=== PATIENT | female | born 1970 | race African-American/Black ===

== ENCOUNTER → 2017-09-30 | Day surgery (SDC) | payer OTHER ==
--- NOTE | 2017-10-03 12:01 | PATH ---
Surgical Pathology Report Patient Name: ROMAN MARTINEZ [facility]. Rec. #: [id number] /Age/Gender: 1970 (Age: 46) / F Account: [id number] Location: [facility] RADIOLOGY U Taken: 09/30/2017 Received: 09/30/2017 Reported: 10/03/2017 Physicians: Agatha Collins M.D. Specimen(s) Received LEFT BREAST 11:30, 9CM FN Clinical History Left breast mass, abnormal imaging Final Diagnosis BREAST, LEFT,11:30, 9 CM FN, CORE BIOPSY: FIBROADENOMA. Electronically Signed Imelda Smith M.D. Gross Description Received in formalin, labeled "left breast 11:30 9 cm fn" are five cores of light de luna and yellow soft tissue admixed with blood clot ranging from 0.3-1 cm in length with a diameter up to 0.2 cm. Entirely submitted in one cassette. Time to formalin fixation: 2 minutes Total formalin fixation: Approximately 6 hours ebram/09/30/2017
== END | disposition home or self-care (01) ==
LOC: FRADUS-SUR 11:12
PROVIDERS: ATTEND Surgery
PROC: 0HBU3ZX Excision of Left Breast, Percutaneous Approach, Diagnostic (ICD-10-PCS; principal; 2017-09-30)
DX: N63.22 Unspecified lump in the left breast, upper inner quadrant (principal); D24.2 Benign neoplasm of left breast
CPT/HCPCS: 19083; 87899; 88305-TC; A4648; G0206-TC

== ENCOUNTER 2017-10-25 06:49 | Day surgery (SDC) | payer OTHER ==
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
[2017-10-19 14:00] VITALS: BMI 18.5
[2017-10-25] MEDS ORDERED: LIDOCAINE HCL 1%, 10 MG/ML (20ML VIAL) ONE (07:32)
[2017-10-25] MEDS ORDERED: KETOROLAC TROMETHAMINE 30 MG/1 ML VIAL IVPUSH PRN (09:41)
[2017-10-25] MEDS ORDERED: ONDANSETRON 4 MG/2 ML VIAL IVPUSH PRN (09:41)
[2017-10-25] MEDS ORDERED: DEXTROSE 5%-0.45% SALINE 1,000 ML IV SCH (09:45)
[2017-10-25] MEDS ORDERED: BUPIVACAINE HCL/PF 2.5 MG/ML - 30 ML VIAL IJ ONE (10:37)
[2017-10-25] MEDS ORDERED: BUPIVACAINE HCL/PF 0.25% (2.5MG/ML) 10 ML VIAL IJ ONE ×2 (10:40)
[2017-10-25] MEDS ORDERED: PROMETHAZINE HCL 25 MG/1 ML VIAL IVPUSH PRN (11:12)
[2017-10-25] MEDS ORDERED: oxyCODONE HCL 5 MG TABLET PO PRN (11:12)
[2017-10-25] MEDS ORDERED: SODIUM CHLORIDE 1,000 ML IV SCH (11:15)
[2017-10-25 12:01] VITALS: PULSE 84; TEMP 97.3
[2017-10-25 12:33] VITALS: BP 124/78
--- NOTE | 2017-10-26 10:23 | OP ---
DATE OF OPERATION: 10/25/2017 PREOPERATIVE DIAGNOSES: Right atypia and palpable left breast mass. POSTOPERATIVE DIAGNOSES: Right atypia and palpable left breast mass. PROCEDURE: 1. Right partial mastectomy. 2. Left breast mass excision. SURGEON: Courtney Collins MD KNIFE BLADE POLISHER: LENORE Jones ANESTHESIA: General. ANESTHESIOLOGIST: SPECIMEN: 1. Right partial mastectomy. 2. Left breast mass. ESTIMATED BLOOD LOSS: Minimal. DRAINS: None. INDICATION FOR PROCEDURE: The patient is a 47-year-old woman who had an abnormal mammogram. The mammogram showed suspicious findings in the right breast lower inner quadrant. Stereotactic biopsy showed atypia. Excision was recommended. Prior to her initial visit, the patient noticed a left breast mass. Ultrasound showed a mass consistent with a fibroadenoma in the left upper outer quadrant. She opted for excision of the mass at the same time as the right-sided procedure. The procedure, risks, and complications were discussed with her prior to surgery. DESCRIPTION OF PROCEDURE: The patient was taken to Breast Imaging where she underwent localization of the clip in the right breast lower inner quadrant. She was taken to the ambulatory area. Informed consent was obtained. Examination of the breasts showed a localizing wire in the right lower inner quadrant and a palpable mass in the left upper outer quadrant. She was taken to the operating room and placed on the operating room table in the supine position. Sequential compression devices were placed on both legs. She received antibiotics prior to surgery. The breasts were prepped and draped in the usual fashion. The right-sided procedure was performed first after the patient was intubated and after she received antibiotics. A radial incision was made from the tip of the needle towards the nipple. The incision was deepened using electrocautery. Electrocautery was used to mobilize the tissue around the guidewire, down towards the tip of the needle. The specimen was then removed and labeled with a long lateral suture and a short superior suture. A specimen radiograph showed the clip was included. The specimen was placed in formalin and sent to Radiology. The wound was irrigated and inspected for hemostasis. The skin was infiltrated with 0.25% Marcaine. The deep tissue was closed with interrupted sutures of 2-0 plain. The dermis was closed with interrupted sutures of 3-0 Vicryl. The skin was closed with a running subcuticular closure of 4-0 Biosyn. The wound was cleaned and covered with Steri-Strips. Attention was then turned to the left breast mass. The mass could be felt in the left upper inner quadrant. An incision was made directly overlying the mass. The incision was deepened using electrocautery until the mass was exposed. The mass was then from the surrounding breast tissue using blunt dissection. The mass was grasped with a clamp, and electrocautery was used to remove it from the operative field. It was labeled with a long lateral stitch and a short superior stitch. In the appearance, it was consistent with a fibroadenoma. It was placed in formalin and sent to Pathology. The wound was inspected, and there was a bleeding area in the chest wall, that was controlled with electrocautery. The incision was closed using interrupted sutures of 3-0 Vicryl for the dermis. The skin was infiltrated with 0.25% Marcaine. The skin was then closed with a running subcuticular closure of 4-0 Biosyn. The wound was cleaned and covered with Steri-Strips. A sterile gauze dressing was applied to both incisions, and a surgical bra was applied. The patient tolerated the procedure well. At the end of the procedure, all sponge, lap, and instrument counts were correct. She was taken to the recovery area in satisfactory condition. COURTNEY COLLINS M.D. [id number]
--- NOTE | 2017-10-27 16:00 | PATH ---
Surgical Pathology Report Patient Name: ROMAN MARTINEZ [facility]. Rec. #: [id number] /Age/Gender: 1970 (Age: 47) / F Account: [id number] Location: [facility] AMBULATORY Taken: 10/25/2017 Received: 10/25/2017 Reported: 10/27/2017 Physicians: Agatha Collins M.D. Specimen(s) Received A: RIGHT PARTIAL MASTECTOMY B: LEFT BREAST MASS Clinical History Right atypia, left palpable mass Final Diagnosis A. BREAST, RIGHT, PARTIAL MASTECTOMY: BENIGN BREAST TISSUE SHOWING PROLIFERATIVE FIBROCYSTIC CHANGES INCLUDING CYSTIC APOCRINE METAPLASIA, USUAL DUCTAL HYPERPLASIA (UDH) AND COLUMNAR CELL CHANGE. NO RESIDUAL ATYPICAL DUCTAL HYPERPLASIA (ADH)/ATYPIA IS IDENTIFIED. PRIOR BIOPSY SITE CHANGES ARE PRESENT. B. BREAST, LEFT, MASS, EXCISION: BENIGN BREAST TISSUE SHOWING FIBROADENOMA. PRIOR BIOPSY SITE CHANGES ARE PRESENT. Electronically Signed Akiko Earl M.D. Gross Description A. Received in formalin, labeled "right partial mastectomy," is a 2.7 x 2.3 x 1.5 cm. de luna-yellow, irregular, portion of fibroadipose tissue with a needle localization wire present. There is a short suture marking the superior aspect and a long suture marking the lateral aspect, per the surgeon. There is no skin present. The specimen is inked as follows: superior and lateral blue; inferior green; medial yellow; anterior red; deep black. The specimen is serially sectioned from superior to inferior. Sectioning reveals abundant dense, white, focally firm fibrous tissue. No definitive mass is identified. The specimen is entirely and sequentially submitted in 7 cassettes with the superior margin in cassette 1 and the inferior margin in cassette 7. Time to formalin fixation: 16 minutes Total formalin fixation time: Approximately 7 hours. B. Received in formalin, labeled "left breast mass," is a 2.5 x 2.0 x 0.7 cm. de luna-yellow, irregular, portion of fibroadipose tissue. There is no needle localization wire present. There is a short suture marking the superior aspect and a long suture marking the lateral aspect, per the surgeon. There is no skin present. The specimen is inked as follows: superior and lateral blue; inferior green; medial yellow; anterior red; deep black. The specimen is serially sectioned from lateral to medial. Sectioning reveals a 0.4 x 0.4 x 0.3 cm focus of firm fibrous tissue 0.1 cm from the anterior and lateral margins. The focus is 0.2 cm from the deep margin and 0.4 cm from the superior margin. The remaining parenchyma displays abundant dense, white fibrous tissue. The specimen is entirely and sequentially submitted in 6 cassettes with the lateral margin in cassette 1, the medial margin in cassette 6 and a firm focus in cassettes 1-3. Time to formalin fixation: 1 minute Total formalin fixation time: Approximately 7 hours. 10/25/2017 [facility]10/25/2017
== END 2017-10-25 12:45 | disposition home or self-care (01) ==
LOC: FASU 06:49
PROVIDERS: ATTEND Surgery
PROC: 0HBT0ZZ Excision of Right Breast, Open Approach (ICD-10-PCS; principal; 2017-10-25 10:10)
PROC: 0HBU0ZX Excision of Left Breast, Open Approach, Diagnostic (ICD-10-PCS; 2017-10-25 10:10)
DX: N60.11 Diffuse cystic mastopathy of right breast (principal); N60.81 Other benign mammary dysplasias of right breast; D24.2 Benign neoplasm of left breast
CPT/HCPCS: 19281; 84703; 88307-TC; 94760

== ENCOUNTER 2019-05-12 09:24 | Inpatient (IN) | payer OTHER ==
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
--- NOTE | 2019-05-12 10:39 | PDOC ---
Documentation entered by Mildred Pascual SCRIBE, acting as scribe for Concha Monroy MD. Concha Monroy MD: This documentation has been prepared by the Ankur santoyo Mackenzie, SCRIBE, under my direction and personally reviewed by me in its entirety. I confirm that the documentation accurately reflects all work , treatment, procedures, and medical decision making performed by me. Attending Attestation - Resident Resident Name: Ame Arenas - ED Attending Attestation I have performed the following: I have examined & evaluated the patient, The case was reviewed & discussed with the resident, I agree w/resident's findings & plan, Exceptions are as noted - HPI HPI: The patient is a 48 year old female, with a significant PMH of COPD, asthma, HTN (noncompliant w/ meds), and tobacco use who presents to the emergency department with left sided chest pain since yesterday afternoon. Patient describes the pain as originally 3/10 when at rest however the pain intensified today radiating to her upper back prompting her to come in today. Patient states pain is aggravated by lying flat on her back and despite taking Tylenol and tums it is not alleviated by anything. Patient denies any pain radiating to her jaw or shoulder. Patient notes occasional bilateral leg swelling. The patient, headache and dizziness. Denies fever, chills, nausea, vomiting, diarrhea and constipation. Denies dysuria, frequency, urgency and hematuria. Allergies: NKDA, however cannot take aspirin due to stomach problems Past surgical history: As per resident note Social history: Tobacco use, 1PPD since she was 13, Marijuana use PCP: Dr. Curtis Romo 05/12/19 10:37 - Physicial Exam PE: GENERAL: Awake, alert, and fully oriented, in no acute distress HEAD: No signs of trauma EYES: PERRLA, EOMI, sclera anicteric, conjunctiva clear ENT: Auricles normal inspection, hearing grossly normal, nares patent, oropharynx clear without exudates. Moist mucosa NECK: Normal ROM, supple, no lymphadenopathy, JVD, or masses LUNGS: Breath sounds equal, clear to auscultation bilaterally. No wheezes, and no crackles HEART: Regular rate and rhythm, normal S1 and S2, no murmurs, rubs or gallops ABDOMEN: Soft, nontender, normoactive bowel sounds. No guarding, no rebound. No masses EXTREMITIES: Normal range of motion, no edema. No clubbing or cyanosis. No cords, erythema, or tenderness NEUROLOGICAL: Cranial nerves II through XII grossly intact. Normal speech, normal gait. Motor and sensation intact SKIN: Warm, dry, normal turgor, no rashes or lesions noted. - Medical Decision Making 05/12/19 10:42 Pt with pleuritic pain that is also positional (relieved by lying on her R side) . Will obtain CXR PA/Lat to r/o ptx. Labs to check trop, CK. Symptoms are atypical for ACS but it is still on the differential. As the pain is pleuritic, will obtain CTA if CXR is normal.
[2019-05-12 12:16] LABS: HEMATOCRIT 40.1 % (32.4-45.2); HEMOGLOBIN 13.7 GM/dL (10.7-15.3); MCH 29.8 pg (25.7-33.7); MCHC 34.3 g/dl (32.0-36.0); MEAN PLT VOLUME 7.7 fl (7.5-11.1); RBC 4.61 M/mm3 (3.60-5.2); RDW 13.1 % (11.6-15.6); WHITE BLOOD COUNT 6.2 K/mm3 (4.0-10.0)
[2019-05-12 12:34] LABS: PLATELET COUNT 257 K/MM3 (134-434)
[2019-05-12 12:38] LABS: ALBUMIN 3.6 g/dl (3.4-5.0); ALK PHOS 77 U/L (45-117); ANION GAP 7 MMOL/L (8-16); BILIRUBIN,TOTAL 0.4 mg/dL (0.2-1); BLOOD UREA NITROGEN 9.7 mg/dL (7-18); CALCIUM 9.6 mg/dL (8.5-10.1); CHLORIDE 109 mmol/L (98-107); CO2 25 mmol/L (21-32); CREATININE 0.7 mg/dL (0.55-1.3); GLUCOSE,RANDOM 88 mg/dL (74-106); LIPASE 110 U/L (73-393); POTASSIUM 4.2 mmol/L (3.5-5.1); SGOT/AST 13 U/L (15-37); SGPT/ALT 21 U/L (13-61); SODIUM 141 mmol/L (136-145); TOT PROT 7.1 g/dl (6.4-8.2)
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
[2019-05-12] MEDS ORDERED: ALBUTEROL SO4 0.083% IH SOL 2.5 MG/3 ML VIAL.NEB. NEB PRN (17:10)
--- NOTE | 2019-05-12 17:21 | HP ---
CHIEF COMPLAINT: SOB, Chest Pain PCP: Dr. Romo HISTORY OF PRESENT ILLNESS: 48 y/o F with PMHx of COPD (Not on Home O2), HTN, Asthma, Anxiety, Depression, GERD presents with Chest pain. Yesterday around noon, patient had sudden onset 7 /10, Chest pressure around her left breast that was worse with deep inhalation and worse with lying supine. She thought it was heart burn and tried tylenol and tums with minimal relief. This AM, the pain worsened and now began radiating to her Left Thoracic spine prompting her to visit the ED. This is the first time she has felt this pain. During my interview, patient says the pain is now a 3/10 and more of a pinching pain that is relieved by lying on her right side and worsens with movement. The chest pain is nonreproducible. Denies any associated SOB, Nausea, vomiting, diarrhea, constipation. ER course was notable for: (1) (2) (3) Recent Travel: Denies PAST MEDICAL HISTORY: As above PAST SURGICAL HISTORY: R Pyeloplasty C-Spine Repair Tubal Ligation Social History: Smokin ppd since age 13 Alcohol: Rarely Drugs: 3-4 Marijuana blunts daily Family History: Allergies No Known Drug Allergies Allergy (Verified 10/19/17 13:45) HOME MEDICATIONS: Home Medications Medication Instructions Recorded Albuterol Sulfate Inhaler - 1 - 2 inh PO QID PRN 10/25/17 [Ventolin HFA Inhaler -] REVIEW OF SYSTEMS As per HPI PHYSICAL EXAMINATION Vital Signs - 24 hr 05/12/19 09:27 Temperature 98.3 F Pulse Rate 88 Respiratory 18 Rate Blood Pressure 112/79 O2 Sat by Pulse 99 Oximetry (%) GENERAL: A&Ox3, NAD HEAD: NCAT EYES: PERRL, EOMI EARS, NOSE, THROAT: Moist mucous membranes. NECK: Supple LUNGS: Clear to auscultation bilaterally. No wheezes, no crackles HEART: Regular rate and rhythm, normal S1 and S2 without murmur ABDOMEN: Soft, nontender, not distended, + bowel sounds, no guarding MUSCULOSKELETAL: No CVA tenderness EXTREMITIES: No peripheral edema. NEUROLOGICAL: Cranial nerves II-XII intact. SKIN: Warm, dry Laboratory Results - last 24 hr 05/12/19 05/12/19 11:40 11:45 WBC 6.2 RBC 4.61 Hgb 13.7 Hct 40.1 MCV 87.0 MCH 29.8 MCHC 34.3 RDW 13.1 Plt Count 257 D MPV 7.7 Sodium 141 Potassium 4.2 Chloride 109 H Carbon Dioxide 25 Anion Gap 7 L BUN 9.7 Creatinine 0.7 Est GFR (CKD-EPI)AfAm 117.09 Est GFR (CKD-EPI)NonAf 101.02 Random Glucose 88 Calcium 9.6 Total Bilirubin 0.4 AST 13 L ALT 21 Alkaline Phosphatase 77 Creatine Kinase 77 Troponin I < 0.02 Total Protein 7.1 Albumin 3.6 Lipase 110 Active Medications Nicotine (Nicoderm Patch -) 7 mg TD DAILY MABEL IMAGING: -CXR: Small peripheral left pneumothorax. Follow-up needed. CT may be of help. -EKG: NSR, Possible LAE, VR 80. QTc 419 ASSESSMENT/PLAN: 48 y/o F with PMHx of COPD (Not on Home O2), HTN, Asthma, Anxiety, Depression, GERD presents with Chest pain, admitted for Pneumothorax. #Chest pain -Due to Left Pneumothorax found on CXR Noted above -ED Resident discussed the case with CT Surgery who recommends repeat imaging 4 hours after initial CXR to determine if worsening -Chest CTA pending to r/o PE -Supplemental O2 -Pulmonary (Dr. Renee) consulted -CT Surgery (Dr. Aguilar) consulted -Currently hemodynamically stable maintaining SpO2 >90% #Tobacco use disorder -Nicoderm patch -Counselled on cessation #COPD -Continues to use Tobacco, not currently on Home O2 -Continue Ventolin PRN, Symbicort #Hx of Depression/Anxiety -Continue home dose Mirtazapine #FEN -No standing fluids -Lytes WNL -Low Sodium/Chol diet #PPx -DVT: SCDs---Hold Chemical AC in the setting of possible chest tube placement Dispo: Admit to Med-surg Visit type - Emergency Visit Emergency Visit: Yes ED Registration Date: 05/12/19 Care time: The patient presented to the Emergency Department on the above date and was hospitalized for further evaluation of their emergent condition. - New Patient This patient is new to me today: Yes Date on this admission: 05/13/19 - Critical Care Critical Care patient: No
[2019-05-12] MEDS: NICOTINE 7 MG/24 HOURS TOPICAL PATCH TD SCH (17:29)
[2019-05-12] MEDS ORDERED: MIRTAZAPINE 15 MG TABLET (FP) ONE (21:28)
[2019-05-12] MEDS ORDERED: MIRTAZAPINE 30 MG TABLET (FP) PO SCH (22:00)
[2019-05-12] MEDS: BUDESONIDE/FORMETEROL FUMARATE 160/4.5 mcg INHALER IH SCH (22:25)
[2019-05-13 03:12] VITALS: BMI 21.3
[2019-05-13 07:53] LABS: ALBUMIN 3.5 g/dl (3.4-5.0); BILIRUBIN,TOTAL 0.6 mg/dL (0.2-1); BLOOD UREA NITROGEN 10.8 mg/dL (7-18); CALCIUM 8.7 mg/dL (8.5-10.1); CREATININE 0.8 mg/dL (0.55-1.3); MAGNESIUM 2.3 mg/dL (1.8-2.4); PHOSPHOROUS 3.7 mg/dL (2.5-4.9); POTASSIUM 4.3 mmol/L (3.5-5.1); TOT PROT 6.9 g/dl (6.4-8.2)
[2019-05-13 07:58] LABS: BASO % 0.5 % (0-2.0); EOS % 4.4 % (0-4.5); HEMATOCRIT 40.3 % (32.4-45.2); HEMOGLOBIN 13.7 GM/dL (10.7-15.3); LYMPH % 24.3 % (8-40); MCH 30.1 pg (25.7-33.7); MCHC 34.1 g/dl (32.0-36.0); MEAN CELL VOLUME 88.3 fl (80-96); MEAN PLT VOLUME 8.2 fl (7.5-11.1); MONO % 11.2 % (3.8-10.2); NEUT % 59.6 % (42.8-82.8); PLATELET COUNT 252 K/MM3 (134-434); RBC 4.57 M/mm3 (3.60-5.2); RDW 12.9 % (11.6-15.6); WHITE BLOOD COUNT 4.9 K/mm3 (4.0-10.0)
[2019-05-13] MEDS ORDERED: PT OWN MED DRAWER 7, Y5N ONE (09:08)
[2019-05-13] MEDS ORDERED: ACETAMINOPHEN 325 MG TABLET (FP) PO PRN (09:20)
[2019-05-13] MEDS ORDERED: ENOXAPARIN NA (PORCINE) 40 MG/0.4 ML DISP.SYRIN SQ SCH (10:00)
[2019-05-13] MEDS ORDERED: UMECLIDINIUM/VILANTEROL (ANORO) 62.5/25 MCG INHALER IH SCH (10:00)
[2019-05-13] MEDS: NICOTINE 7 MG/24 HOURS TOPICAL PATCH TD SCH (10:14)
--- NOTE | 2019-05-13 10:48 | CON.PULM ---
Consult Consult Specialty:: PULMONARY Referred by:: MIKE Reason for Consultation:: PTX - History of Present Illness Chief Complaint: LEFT SIDED CHEST PAIN/ANDREWS History of Present Illness: 48 FEMALE PREVIOUSLY HEAVY SMOKER WITH COPD ON SYMBICORT/INCRUSE/PROAIR WAS IN USUAL STATE OF HEALTH WHEN SHE DEVELOPED GRADUAL ONSET OF LEFT ANTERIOR CHEST DISCOMFORT AND SOB ON MODERATE EXERTION. SHE STATES THE DISCOMFORT RADIATED TO HER BACK THE NEXT DAY AND SHE THEN DECIDED TO COME TO ER FOR EVALUATION. SHE DENIES DIAPHORESIS, RECENT COUGH, OR PLEURITIC CHEST PAIN. SHE DENIES FEVER OR SICK CONTACTS. SHE IS COMPLIANT WITH HER INHALERS AND DOES SMOKE 1/2 PPD WITH HEAVY USE OF MARIJUANA. - History Source History Provided By: Patient Limitations to Obtaining History: No Limitations - Past Medical History CADDY: No: Alzheimer's Cardio/Vascular: No: AFIB, HTN Pulmonary: Yes: COPD. No: O2 Dependent Gastrointestinal: No: Ascites Hepatobiliary: No: Cirrhosis Renal/: No: Renal Failure ...LMP: 10/23/17 ...: No Heme/Onc: No: Anemia Psych: Yes: Addictions (MARIJUANA), Depression Endocrine: No: Diabetes Mellitus - Past Surgical History Past Surgical History: Yes: Tubal Ligation - Alcohol/Substance Use Hx Alcohol Use: Yes (RARE) - Smoking History Smoking history: Current every day smoker Have you smoked in the past 12 months: Yes Aproximately how many cigarettes per day: 1 If you are a former smoker, when did you quit?: 2014 Home Medications - Allergies Allergies/Adverse Reactions: Allergies Allergy/AdvReac Type Severity Reaction Status Date / Time No Known Drug Allergies Allergy Verified 10/19/17 13:45 - Home Medications Home Medications: Ambulatory Orders Albuterol Sulfate Inhaler - [Ventolin HFA Inhaler -] 1 - 2 inh PO QID PRN Family Disease History - Family Disease History Family Disease History: CA: Sister (breast ca 46) Review of Systems - Review of Systems Constitutional: denies: Fever Eyes: denies: Blurred Vision HENT: denies: Difficult Swallowing Neck: denies: Decreased ROM Cardiovascular: reports: Chest Pain Respiratory: reports: Exercise Intolerance, SOB on Exertion. denies: Cough, Hemoptysis, Orthopnea, Wheezing Gastrointestinal: denies: Abdominal Pain Genitourinary: denies: Burning Physical Exam Vital Sings: Vital Signs Temperature 98.1 F 07/07/19 10:00 Pulse Rate 75 05/13/19 10:00 Respiratory Rate 18 05/13/19 10:00 Blood Pressure 109/71 05/13/19 10:00 O2 Sat by Pulse Oximetry (%) 100 05/13/19 09:00 Constitutional: Yes: Calm Eyes: Yes: EOM Intact HENT: Yes: Normocephalic Neck: Yes: Trachea Midline Cardiovascular: Yes: Regular Rate and Rhythm Respiratory: Yes: CTA Bilaterally Gastrointestinal: Yes: Normal Bowel Sounds Edema: No Integumentary: Yes: WNL ...Motor Strength: WNL Labs: CBC, BMP 05/13/19 06:30 05/13/19 06:30 REST REVIEWED Imaging - Results Chest X-ray: Report Reviewed, Image Reviewed Cat Scan: Report Reviewed, Image Reviewed EKG: Report Reviewed Problem List - Problems (1) COPD (chronic obstructive pulmonary disease) Code(s): J44.9 - CHRONIC OBSTRUCTIVE PULMONARY DISEASE, UNSPECIFIED (2) Pneumothorax on left Code(s): J93.9 - PNEUMOTHORAX, UNSPECIFIED Assessment/Plan MINIMAL LEFT APICAL PTX NOT REQUIRING TUBE DRAINAGE AT THIS TIME BILATERAL APICAL BULLOUS DISEASE COPD CONTINUE HIGH CONCENTRATION FIO2 TO FACILITATE RESOLUTION OF PTX DUE TO NITROGEN WASHOUT EFFECT. FOLOW CXR/MAY NEED CT CHEST NO CONTRAST PRIOR TO DISCHARGE CONTINUE BRONCHODILATORS CONSIDER T-SURG EVALUATION IN CASE L PTX WORSENS NICOTINE PATCH Miguelito SCHREIBER MD
[2019-05-13] MEDS: BUDESONIDE/FORMETEROL FUMARATE 160/4.5 mcg INHALER IH SCH (11:01)
--- NOTE | 2019-05-13 13:33 | EKG ---
Test Reason : Blood Pressure : / mmHG Vent. Rate : 080 BPM Atrial Rate : 080 BPM P-R Int : 158 ms QRS Dur : 098 ms QT Int : 364 ms P-R-T Axes : 065 053 055 degrees QTc Int : 419 ms NORMAL SINUS RHYTHM INCOMPLETE RBBB LEFT ATRIAL ENLARGEMENT BORDERLINE ECG NO PREVIOUS ECGS AVAILABLE Confirmed by MD ROSEMARIE, SHIVANI ([id number]) on 05/13/2019 1:33:01 PM Referred By: Confirmed By:SHIVANI HOUSTON MD
--- NOTE | 2019-05-13 16:26 | DS ---
Physical Exam: SUBJECTIVE: L sided pleuritic CP improved. No fever/chills. No cough/sputum/ hemoptysis OBJECTIVE: Afebrile, Hemodynamically Stable. Last Vital Signs Temp Pulse Resp BP Pulse Ox 98.3 F 88 18 112/79 99 05/12/19 09:27 05/12/19 09:27 05/12/19 09:27 05/12/19 09:27 05/12/19 09:27 HEENT - Atraumatic, Normocephalic. Heart - S1, S2, RRR Lungs - clear to auscultation Abdomen - Soft, non-tender. Bowel Sounds normal. Extremities - no edema, no calf tenderness. Laboratory Results - last 24 hr 05/12/19 05/12/19 11:40 11:45 WBC 6.2 RBC 4.61 Hgb 13.7 Hct 40.1 MCV 87.0 MCH 29.8 MCHC 34.3 RDW 13.1 Plt Count 257 D MPV 7.7 Sodium 141 Potassium 4.2 Chloride 109 H Carbon Dioxide 25 Anion Gap 7 L BUN 9.7 Creatinine 0.7 Est GFR (CKD-EPI)AfAm 117.09 Est GFR (CKD-EPI)NonAf 101.02 Random Glucose 88 Calcium 9.6 Total Bilirubin 0.4 AST 13 L ALT 21 Alkaline Phosphatase 77 Creatine Kinase 77 Troponin I < 0.02 Total Protein 7.1 Albumin 3.6 Lipase 110 Date of Admission:05/12/19 Date of Discharge: 05/13/19 Minutes to complete discharge: 40 Discharge Summary Reason For Visit: PNEUMOTHORAX ON LEFT Current Active Problems COPD (chronic obstructive pulmonary disease) (Acute) Pneumothorax on left (Acute) Hospital Course: 48 year old female smoker with history of COPD, Anxiety/Depression, enthusiastic Marijuana use, GERD, Nephrolithiasis, s/p C-Spine Sx after traumatic injury, presents with acute onset L sided pleuritic chest pain, found to have L sided Pneumothorax, which has since resolved on repeat imaging. 1. Acute L Pneumothorax CXR - L apical PTX, chronic diffuse lung changes. CTA Chest - less than 10% L sided PTX, no pulmonary embolus, emphysematous changes. Saturating well on room air. ECG - NSR rate 80 Hemodynamically Stable. Repeat CXR shows resolution of Pneumothorax. Discussed with Dr. Renee who reviewed the imaging and cleared the patient for discharge. She was counselled regarding chances of recurrent pneumothorax and importance of seeking medical attention if any recurrence of CP or Dyspnea. 2. Tobacco Use Counselled, prescribed Nicotine patches 3. COPD - Stable - no evidence of acute exacerbation. Continue home meds - Symbicort, Incruse Ellipta, and Albuterol prn. 4. Depression/Anxiety - Continue Mirtazapine. Medically optimized for discharge after resolution of PTX. Counselled re: symptoms and signs which should prompt return to ED [facility]. Condition: Guarded - Instructions Diet, Activity, Other Instructions: You were admitted with a small left lung spontanoeus pneumothorax which has resolved. Smoking and COPD are risk factors for recurrent pneumothorax. Repeat imaging has shown resolution of pneumothorax with full expansion of the lungs. If you develop any further chest pain or shortness of breath, please seek medical attention. Please follow with your PCP and your Office Services Associate. Referrals: Curtis Romo MD [Primary Care Provider] - 1 Week - Home Medications Comprehensive Discharge Medication List: Ambulatory Orders Albuterol Sulfate Inhaler - [Ventolin HFA Inhaler -] 1 - 2 inh PO QID PRN Budesonide/Formeterol Fumarate [SYMBICORT 160/4.5mcg -] 2 puff IH BID inhaler 05/13/19 Mirtazapine [Remeron -] 30 mg PO HS tablet 05/13/19 Nicotine Patch [Nicoderm Patch -] 7 mg TD DAILY 14 Days #14 patch 05/13/19 Umeclidinium Brm/Vilanterol Tr [Anoro Ellipta 62.5-25 Mcg INH] 1 puff IH DAILY inhaler 05/13/19 Problem List - Problems (1) Pneumothorax on left Code(s): J93.9 - PNEUMOTHORAX, UNSPECIFIED This patient is new to me today: No Emergency Visit: Yes ED Registration Date: 05/12/19 Care time: The patient presented to the Emergency Department on the above date and was hospitalized for further evaluation of their emergent condition. Critical Care patient: No - Discharge Referral Referred to [facility] Med P.C.: No
[2019-05-13 17:01] VITALS: BP 136/86; PULSE 81; TEMP 98.4
== END 2019-05-13 17:28 | disposition home or self-care (01) | DRG 201 ==
LOC: JER 09:24 → JERBED 13:43 → J8W 20:20
DX: J93.83 Other pneumothorax (principal); J44.9 Chronic obstructive pulmonary disease, unspecified; I10 Essential (primary) hypertension; F17.210 Nicotine dependence, cigarettes, uncomplicated; F41.8 Other specified anxiety disorders; K21.9 Gastro-esophageal reflux disease without esophagitis; F12.90 Cannabis use, unspecified, uncomplicated; Z91.14 Patient's other noncompliance with medication regimen
CPT/HCPCS: 36415; 71046-TC-FY; 71275-TC; 80053; 82550; 83690; 83735; 84100; 84484; 85025; 85027; 93005; 93010; 99285-25

== ENCOUNTER 2019-08-29 09:05 | Day surgery (SDC) | payer OTHER ==
[2019-08-27 14:54] VITALS: BMI 21.6
[2019-08-29 09:25] VITALS: TEMP 98.2
[2019-08-29 11:13] VITALS: BP 110/75; PULSE 88
--- NOTE | 2019-08-31 14:16 | PATH ---
Surgical Pathology Report Patient Name: ROMAN MARTINEZ [facility]. Rec. #: [id number] /Age/Gender: 1970 (Age: 48) / F Account: [id number] Location: [facility] Taken: 08/29/2019 Received: 08/29/2019 Reported: 08/31/2019 Physicians: Imelda Buckley M.D. Specimen(s) Received A: POLYP DISTAL TRANSVERSE COLON B: POLYP SIGMOID COLON C: POLYP RECTO SIGMOID COLON Clinical History Abdominal pain Postoperative diagnosis: Colon polyps, hemorrhoids Final Diagnosis A. DISTAL TRANSVERSE COLON, POLYP, BIOPSY: POLYPOID COLONIC MUCOSA WITH MILD SUPERFICIAL HYPERPLASTIC FEATURES. B. SIGMOID COLON, POLYP, BIOPSY: HYPERPLASTIC POLYP. POLYPOID COLONIC MUCOSA WITH PROMINENT LYMPHOID AGGREGATE. C. RECTOSIGMOID COLON, POLYP, BIOPSY: POLYPOID COLONIC MUCOSA WITH MILD SUPERFICIAL HYPERPLASTIC FEATURES. Electronically Signed Imelda Smith M.D. Gross Description A. Received in formalin, labeled "biopsy polyp distal transverse" is a de luna, irregular portion of soft tissue measuring 0.3 cm. in greatest dimension. The specimen is submitted in toto in one cassette. B. Received in formalin, labeled "polyp sigmoid colon" are 2 de luna, irregular portions of soft tissue measuring 0.2 and 0.4 cm. in greatest dimension. The specimens are submitted in toto in one cassette. C. Received in formalin, labeled "biopsy polyp rectosigmoid colon" are 4 de luna, irregular portions of soft tissue ranging from 0.2-0.4 cm. in greatest dimension. The specimens are submitted in toto in one cassette. 08/30/2019 [facility]08/30/2019
== END 2019-08-29 11:10 | disposition home or self-care (01) ==
LOC: FASU-ENDO 09:05
PROVIDERS: ATTEND Internal Medicine Gastroenterology
PROC: 0DBL8ZX Excision of Transverse Colon, Via Natural or Artificial Opening Endoscopic, Diagnostic (ICD-10-PCS; 2019-08-29)
PROC: 0DBN8ZX Excision of Sigmoid Colon, Via Natural or Artificial Opening Endoscopic, Diagnostic (ICD-10-PCS; principal; 2019-08-29 10:12)
DX: D12.3 Benign neoplasm of transverse colon (principal); D12.7 Benign neoplasm of rectosigmoid junction; K64.1 Second degree hemorrhoids; R10.9 Unspecified abdominal pain
CPT/HCPCS: 84703; 88305-TC

== ENCOUNTER 2019-09-19 11:31 | Day surgery (SDC) | payer OTHER ==
[2019-09-14 17:46] VITALS: BMI 21.6
[2019-09-19] MEDS ORDERED: PROPOFOL 20 ML ONE ×2 (12:13)
[2019-09-19 13:30] VITALS: TEMP 98.6
[2019-09-19 14:56] VITALS: BP 125/84; PULSE 86
--- NOTE | 2019-09-24 11:53 | PATH ---
Surgical Pathology Report Patient Name: ROMAN MARTINEZ [facility]. Rec. #: [id number] /Age/Gender: 1970 (Age: 48) / F Account: [id number] Location: [facility] Taken: 09/19/2019 Received: 09/19/2019 Reported: 09/24/2019 Physicians: Imelda Buckley M.D. Specimen(s) Received A: BX SECOND PORTION DUODENUM B: BX GASTRIC ANTRUM C: BX GE JUNCTION Clinical History Dyspepsia Postoperative diagnosis: Gastritis Final Diagnosis A. SECOND PORTION OF DUODENUM, BIOPSY: DUODENAL MUCOSA WITH NO PATHOLOGIC FINDINGS. B. GASTRIC ANTRUM, BIOPSY: MILD CHRONIC GASTRITIS WITH FOCAL INTESTINAL METAPLASIA. IMMUNOSTAIN IS NEGATIVE FOR H. PYLORI ORGANISMS. C. GE JUNCTION, BIOPSY: ESOPHAGEAL (SQUAMOUS) MUCOSA SHOWING FEATURES OF REFLUX ESOPHAGITIS. SCANT COLUMNAR (GASTRIC-TYPE) MUCOSA WITH NO PATHOLOGIC FINDINGS. NEGATIVE FOR INTESTINAL METAPLASIA. Electronically Signed Akiko Earl M.D. Gross Description A. Received in formalin, labeled "biopsy second portion of duodenum" is are two de luna, irregular portions of soft tissue measuring 0.2 cm and 0.5 cm. in greatest dimension. The specimens are submitted in toto in one cassette. B. Received in formalin, labeled "biopsy gastric antrum" is a de luna, irregular portion of soft tissue measuring 0.3 cm. in greatest dimension. The specimen is submitted in toto in one cassette. C. Received in formalin, labeled "biopsy GE junction" is a de luna, irregular portion of soft tissue measuring 0.4 cm. in greatest dimension. The specimen is submitted in toto in one cassette. 09/20/2019 [facility]09/20/2019
== END 2019-09-19 14:30 | disposition home or self-care (01) ==
LOC: FASU-ENDO 11:31
PROVIDERS: ATTEND Internal Medicine Gastroenterology
PROC: 0DB68ZX Excision of Stomach, Via Natural or Artificial Opening Endoscopic, Diagnostic (ICD-10-PCS; 2019-09-19)
PROC: 0DB48ZX Excision of Esophagogastric Junction, Via Natural or Artificial Opening Endoscopic, Diagnostic (ICD-10-PCS; 2019-09-19)
PROC: 0DB98ZX Excision of Duodenum, Via Natural or Artificial Opening Endoscopic, Diagnostic (ICD-10-PCS; principal; 2019-09-19 12:56)
DX: K29.50 Unspecified chronic gastritis without bleeding (principal); K21.0 Gastro-esophageal reflux disease with esophagitis; K31.9 Disease of stomach and duodenum, unspecified; R10.13 Epigastric pain
CPT/HCPCS: 84703; 88305-TC; 88342-TC

== ENCOUNTER 2020-07-15 05:11 | Day surgery (SDC) | payer OTHER ==
[2020-07-11 14:16] VITALS: BMI 23.1
[2020-07-15] MEDS ORDERED: ceFAZolin SODIUM 1 GM VIAL IVPB ONE (14:07)
[2020-07-15] MEDS ORDERED: MIDAZOLAM HCL 2 MG/2 ML SINGLE DOSE VIAL ONE (14:57)
[2020-07-15] MEDS ORDERED: PROPOFOL 20 ML ONE (14:57)
[2020-07-15] MEDS ORDERED: ceFAZolin SODIUM 1 GM VIAL ONE (15:02)
[2020-07-15] MEDS ORDERED: SODIUM CHLORIDE 0.9% P/F 10 ML VIAL IJ ONE (15:02)
[2020-07-15] MEDS ORDERED: LIDOCAINE HCL/PF 2% SDV 5ML VIAL ONE (15:02)
[2020-07-15] MEDS ORDERED: KETOROLAC TROMETHAMINE 30 MG/1 ML VIAL ONE (15:06)
--- NOTE | 2020-07-15 16:47 | CONS ---
DATE OF CONSULTATION: DATE OF DICTATION: 07/15/2020 PREOPERATIVE NOTE HISTORY OF PRESENT ILLNESS: This is a 48-year-old female with a history of left flank pain increased in severity, colicky in nature, also frequency, dysuria, and 1 episode of hematuria. Patient does have history of nephrolithiasis. She underwent a right extracorporal lithotripsy in 2019. The patient is G3, P3. Denies any allergies. PHYSICAL EXAMINATION: Abdomen: Revealed a soft abdomen. There was bilateral CVA tenderness. Extremities: Extremities revealed full range of motion with no cyanosis, clubbing, or edema. A urinalysis was positive for blood. An ultrasound revealed a 5-7 mm stone in the left renal pelvis. IMPRESSION: A left renal stone. PLAN: Left extracorporeal shockwave lithotripsy. [place] [id number]
[2020-07-15 19:08] VITALS: BP 141/91; PULSE 73; TEMP 96.8
--- NOTE | 2020-07-15 20:08 | OP ---
DATE OF OPERATION: 07/15/2020 PREOPERATIVE DIAGNOSIS: Left renal stone, micturition disorder, and microscopic hematuria. POSTOPERATIVE DIAGNOSIS: Left renal stone, micturition disorder, and microscopic hematuria. OPERATIVE PROCEDURE: Left extracorporeal shockwave lithotripsy. ANESTHESIA: General. DESCRIPTION OF PROCEDURE: Under above-stated anesthesia, patient was prepped and draped in the usual sterile manner. She was placed in the supine position. After proper measurements and positioning, the left kidney stone was placed in the exact place of the shockwave impulse, approximately 1500 shocks at an energy of 17 were applied. Afterwards, 1000 shocks were applied at an energy of 20. There appeared to be a good fragmentation of the stone. The patient tolerated the procedure well and she returned to the recovery room in good condition. [place] [id number]
== END 2020-07-15 16:15 | disposition home or self-care (01) ==
LOC: JASU-SURG 05:11
PROVIDERS: ATTEND Urology
PROC: 0TF4XZZ Fragmentation in Left Kidney Pelvis, External Approach (ICD-10-PCS; principal; 2020-07-15 13:45)
DX: N20.0 Calculus of kidney (principal); R39.198 Other difficulties with micturition; R31.29 Other microscopic hematuria
CPT/HCPCS: 84703

== ENCOUNTER 2020-09-17 10:03 | Day surgery (SDC) | payer OTHER ==
[2020-09-12 14:41] VITALS: BMI 21.6
[2020-09-17] MEDS ORDERED: PROPOFOL 20 ML ONE (10:07)
[2020-09-17] MEDS ORDERED: LIDOCAINE HCL/PF 2% SDV 5ML VIAL ONE (10:07)
[2020-09-17 11:48] VITALS: BP 121/78; PULSE 94
[2020-09-17 12:04] VITALS: TEMP 98
== END 2020-09-17 12:21 | disposition home or self-care (01) ==
LOC: FASU-ENDO 10:03
PROVIDERS: ATTEND Internal Medicine Gastroenterology
PROC: 0DB78ZX Excision of Stomach, Pylorus, Via Natural or Artificial Opening Endoscopic, Diagnostic (ICD-10-PCS; 2020-09-17)
PROC: 0DB48ZX Excision of Esophagogastric Junction, Via Natural or Artificial Opening Endoscopic, Diagnostic (ICD-10-PCS; 2020-09-17)
PROC: 0DB98ZX Excision of Duodenum, Via Natural or Artificial Opening Endoscopic, Diagnostic (ICD-10-PCS; principal; 2020-09-17 11:10)
DX: K29.50 Unspecified chronic gastritis without bleeding (principal); K31.89 Other diseases of stomach and duodenum; Z87.19 Personal history of other diseases of the digestive system
CPT/HCPCS: 84703; 88305-TC; 88342-TC

== ENCOUNTER 2021-01-27 05:29 | Day surgery (SDC) | payer OTHER ==
[2021-01-26 08:15] VITALS: BMI 21.6
[2021-01-27] MEDS ORDERED: MIDAZOLAM HCL 2 MG/2 ML SINGLE DOSE VIAL ONE ×2 (12:03→12:26)
[2021-01-27] MEDS ORDERED: ceFAZolin SODIUM 1 GM VIAL IVPB ONE (12:05)
[2021-01-27 13:33] VITALS: BP 133/86; PULSE 69; TEMP 97.8
== END 2021-01-27 13:30 | disposition home or self-care (01) ==
LOC: JASU-SURG 05:29
PROVIDERS: ATTEND Urology
PROC: 0TF3XZZ Fragmentation in Right Kidney Pelvis, External Approach (ICD-10-PCS; principal; 2021-01-27 10:00)
DX: N20.0 Calculus of kidney (principal)
CPT/HCPCS: 81025

== ENCOUNTER 2021-02-27 04:02 | Day surgery (SDC) | payer OTHER ==
[2021-02-26 08:54] VITALS: BMI 23.1
[2021-02-27] MEDS ORDERED: LIDOCAINE HCL/PF 1% SDV 5ML VIAL ONE (07:19)
== END 2021-02-27 09:45 | disposition home or self-care (01) ==
LOC: JASU-SURG 04:02
PROVIDERS: ATTEND Pain Medicine Pain Medicine
DX: Z53.8 Procedure and treatment not carried out for other reasons (principal)

== ENCOUNTER 2021-02-27 09:42 | Emergency (ER) | payer OTHER ==
[2021-02-27 09:50] VITALS: PULSE 94; TEMP 97.9; BMI 22.4
[2021-02-27 10:57] VITALS: BP 149/82
== END 2021-02-27 10:57 | disposition home or self-care (01) ==
LOC: JER 09:42
DX: I10 Essential (primary) hypertension (principal)
CPT/HCPCS: 99282-25

== ENCOUNTER 2021-03-20 04:31 | Day surgery (SDC) | payer OTHER ==
[2021-03-16 18:18] VITALS: BMI 23.1
[2021-03-20] MEDS ORDERED: LIDOCAINE HCL/PF 1% SDV 5ML VIAL ONE (07:16)
[2021-03-20] MEDS ORDERED: DEXAMETHASONE SOD PHOSPHATE/PF 10 MG/ML SDV ONE (07:16)
[2021-03-20] MEDS ORDERED: BUPIVACAINE HCL/PF 0.5% (5MG/ML) 10 ML VIAL ONE (07:17)
[2021-03-20] MEDS ORDERED: BUPIVACAINE HCL/PF 0.5% (5 MG/ML) 30 ML VIAL IJ ONE ×2 (08:21)
[2021-03-20] MEDS ORDERED: IOHEXOL 180 MG/1 ML ML IJ ONE ×2 (08:21)
[2021-03-20 11:30] VITALS: BP 139/89; PULSE 70; TEMP 97.8
== END 2021-03-20 08:55 | disposition home or self-care (01) ==
LOC: JASU-SURG 04:31
PROVIDERS: ATTEND Pain Medicine Pain Medicine
PROC: BR14YZZ Fluoroscopy of Cervical Facet Joint(s) using Other Contrast (ICD-10-PCS; 2021-03-20)
PROC: 3E0T3BZ Introduction of Anesthetic Agent into Peripheral Nerves and Plexi, Percutaneous Approach (ICD-10-PCS; principal; 2021-03-20 08:00)
DX: M47.812 Spondylosis without myelopathy or radiculopathy, cervical region (principal)
CPT/HCPCS: 76000-TC-FY; 81025

== ENCOUNTER 2022-08-11 10:23 | Day surgery (SDC) | payer OTHER ==
[2022-08-09 17:35] VITALS: BMI 21.6
[2022-08-11 11:07] VITALS: RESP 18
[2022-08-11 11:58] VITALS: TEMP 97.5
[2022-08-11 12:41] VITALS: BP 132/80; PULSE 72
== END 2022-08-11 12:40 | disposition home or self-care (01) ==
LOC: FASU-ENDO 10:23
PROVIDERS: ATTEND Internal Medicine Gastroenterology
PROC: 0DB68ZX Excision of Stomach, Via Natural or Artificial Opening Endoscopic, Diagnostic (ICD-10-PCS; 2022-08-11)
PROC: 0DB48ZX Excision of Esophagogastric Junction, Via Natural or Artificial Opening Endoscopic, Diagnostic (ICD-10-PCS; 2022-08-11)
PROC: 0DB98ZX Excision of Duodenum, Via Natural or Artificial Opening Endoscopic, Diagnostic (ICD-10-PCS; principal; 2022-08-11 11:28)
DX: K29.50 Unspecified chronic gastritis without bleeding (principal); K21.00 Gastro-esophageal reflux disease with esophagitis, without bleeding; K31.9 Disease of stomach and duodenum, unspecified; R10.13 Epigastric pain
CPT/HCPCS: 84703; 88305-TC; 88342-TC

== ENCOUNTER 2022-11-18 10:34 | Emergency (ER) | payer OTHER ==
[2022-11-18 10:57] VITALS: RESP 18; TEMP 99.5; BMI 21.4
[2022-11-18 11:07] VITALS: BP 153/98
[2022-11-18 12:51] VITALS: PULSE 85
== END 2022-11-18 14:30 | disposition home or self-care (01) ==
LOC: JER 10:34
DX: R23.8 Other skin changes (principal)
CPT/HCPCS: 93005; 93010; 99283-25

== ENCOUNTER 2023-02-16 10:23 | Day surgery (SDC) | payer OTHER ==
[2023-02-10 15:19] VITALS: BMI 22.3
[2023-02-16 11:52] VITALS: BP 104/74; PULSE 74; RESP 18; TEMP 97.9
== END 2023-02-16 12:10 | disposition home or self-care (01) ==
LOC: FASU-ENDO 10:23
PROVIDERS: ATTEND Internal Medicine Gastroenterology
PROC: 0DB78ZX Excision of Stomach, Pylorus, Via Natural or Artificial Opening Endoscopic, Diagnostic (ICD-10-PCS; 2023-02-16)
PROC: 0DB68ZX Excision of Stomach, Via Natural or Artificial Opening Endoscopic, Diagnostic (ICD-10-PCS; 2023-02-16)
PROC: 0DB48ZX Excision of Esophagogastric Junction, Via Natural or Artificial Opening Endoscopic, Diagnostic (ICD-10-PCS; 2023-02-16)
PROC: 0DB98ZX Excision of Duodenum, Via Natural or Artificial Opening Endoscopic, Diagnostic (ICD-10-PCS; principal; 2023-02-16 11:18)
DX: Z01.818 Encounter for other preprocedural examination (principal); K29.50 Unspecified chronic gastritis without bleeding; K20.90 Esophagitis, unspecified without bleeding; K31.9 Disease of stomach and duodenum, unspecified
CPT/HCPCS: 81025; 88305-TC; 88342-TC

== ENCOUNTER 2023-03-16 10:26 | Day surgery (SDC) | payer OTHER ==
[2023-03-11 10:00] VITALS: BMI 22.3
[2023-03-16 10:56] VITALS: TEMP 97.4
[2023-03-16 13:12] VITALS: RESP 18
[2023-03-16 13:15] VITALS: BP 122/74; PULSE 89
== END 2023-03-16 13:10 | disposition home or self-care (01) ==
LOC: FASU-ENDO 10:26
PROVIDERS: ATTEND Internal Medicine Gastroenterology
PROC: 0DBL8ZX Excision of Transverse Colon, Via Natural or Artificial Opening Endoscopic, Diagnostic (ICD-10-PCS; 2023-03-16)
PROC: 0DBN8ZX Excision of Sigmoid Colon, Via Natural or Artificial Opening Endoscopic, Diagnostic (ICD-10-PCS; 2023-03-16)
PROC: 0DBM8ZX Excision of Descending Colon, Via Natural or Artificial Opening Endoscopic, Diagnostic (ICD-10-PCS; 2023-03-16)
PROC: 0DBK8ZX Excision of Ascending Colon, Via Natural or Artificial Opening Endoscopic, Diagnostic (ICD-10-PCS; principal; 2023-03-16 12:06)
DX: Z12.11 Encounter for screening for malignant neoplasm of colon (principal); K63.5 Polyp of colon; K57.30 Diverticulosis of large intestine without perforation or abscess without bleeding; K64.1 Second degree hemorrhoids; R19.4 Change in bowel habit
CPT/HCPCS: 88305-TC

== ENCOUNTER 2023-04-01 09:04 | Emergency (ER) | payer OTHER ==
[2023-04-01 09:21] VITALS: TEMP 98.7; BMI 21.4
[2023-04-01] MEDS ORDERED: MECLIZINE HCL 25 MG TABLET (FP) PO ONE (10:38)
[2023-04-01] MEDS ORDERED: SODIUM CHLORIDE 0.9% 1000 ML INFUS.BAG IV ONE (10:38)
[2023-04-01] MEDS ORDERED: MECLIZINE HCL 25 MG TABLET (FP) ONE ×2 (10:47→11:05)
[2023-04-01 11:19] LABS: BASO % 0.8 % (0-2.0); EOS % 2.2 % (0-4.5); HEMATOCRIT 38.9 % (32.4-45.2); HEMOGLOBIN 13.7 GM/dL (10.7-15.3); LYMPH % 23.4 % (8-40); MCH 29.1 pg (25.7-33.7); MCHC 35.2 g/dl (32.0-36.0); MEAN CELL VOLUME 82.7 fl (80-96); MEAN PLT VOLUME 8.2 fl (7.5-11.1); MONO % 7.2 % (3.8-10.2); NEUT % 66.4 % (42.8-82.8); PLATELET COUNT 287 10^3/uL (134-434); RBC 4.71 M/mm3 (3.60-5.2); RDW 13.5 % (11.6-15.6)
[2023-04-01 11:21] LABS: URINE APPEARANCE CLEAR; URINE BILIRUBIN NEGATIVE (NEGATIVE); URINE COLOR YELLOW; URINE GLUCOSE (UA) NEGATIVE (NEGATIVE); URINE KETONE NEGATIVE (NEGATIVE); URINE LEUK ESTERASE NEGATIVE (NEGATIVE); URINE NITRITE NEGATIVE (NEGATIVE); URINE PROTEIN NEGATIVE (NEGATIVE); URINE UROBILINOGEN 0.2 mg/dL (0.2-1.0)
[2023-04-01 11:23] LABS: POTASSIUM 4.2 mmol/L (3.5-5.1)
[2023-04-01 11:25] LABS: CALCIUM 9.9 mg/dL (8.5-10.1)
[2023-04-01 11:26] LABS: BLOOD UREA NITROGEN 11.1 mg/dL (7-18); INR 1.04 (0.83-1.09); PROTHROMBIN TIME (PATIENT) 12.1 SEC (9.7-13.0)
[2023-04-01 11:28] LABS: ACTIVATED PTT 31.5 SECONDS (25.2-36.5); CREATININE 0.8 mg/dL (0.55-1.3)
[2023-04-01 11:30] LABS: BILIRUBIN,TOTAL 0.3 mg/dL (0.2-1); TOT PROT 7.7 g/dl (6.4-8.2)
[2023-04-01 13:29] VITALS: BP 112/70; PULSE 79; RESP 16
== END 2023-04-01 13:28 | disposition home or self-care (01) ==
LOC: JER 09:04
DX: R42 Dizziness and giddiness (principal); R51.9 Headache, unspecified; R20.2 Paresthesia of skin; K80.50 Calculus of bile duct without cholangitis or cholecystitis without obstruction; L98.9 Disorder of the skin and subcutaneous tissue, unspecified
CPT/HCPCS: 36415; 70450-TC; 71045-TC-FY; 80053; 81003; 83690; 84484; 84703; 85025; 85610; 85730; 87086; 93005; 93010; 99285-25